=== PATIENT | female | born 1955 ===

== ENCOUNTER 2024-08-03 18:43 | Outpatient (REF) | payer MEDICARE, SELFPAY | END 2024-08-03 18:44 | disposition home or self-care (01) | LOC: LBN 18:43 | PROVIDERS: Visit Provider Nurse Practitioner Family | DX: R30.0 Dysuria (principal); B96.29 Other Escherichia coli [E. coli] as the cause of diseases classified elsewhere | CPT/HCPCS: 87077; 87086; 87186 ==